=== PATIENT | male | born 1935 | race Caucasian/White ===

== ENCOUNTER 2017-12-02 13:30 | Observation (INO) | payer OTHER ==
[~2017-12-02] VITALS: Ht 165.1 cm; Wt 82.1 kg
[2017-12-02 14:02] LABS: BASOPHIL (%) 0.4 % (0-1); EOSINOPHIL (%) 5.1 % (0-5); EOSINOPHIL COUNT 0.6 K/uL (0-0.3); HEMATOCRIT 44.9 % (38.0-50.0); HEMOGLOBIN 14.9 G/DL (12.5-16.6); IMMATURE GRANULOCYTE (%) 0.3 % (0.0-0.7); LYMPHOCYTE (%) 56.4 % (15-42); LYMPHOCYTE COUNT 6.4 K/uL (1.0-2.8); MCH 29.9 PG (29.0-34.0); MCHC 33.2 G/DL (30.0-36.0); MCV 90.2 FL (86-99); MONOCYTE (%) 6.8 % (3-12); MONOCYTE COUNT 0.8 K/uL (0-0.8); NEUTROPHIL COUNT 3.5 K/uL (1.8-6.4); RBC DIS.WIDTH-CV 12.4 % (11.8-14.6); RBC DIS.WIDTH-SD 41.1 % (39-53); RED BLOOD COUNT 4.98 M/uL (4.00-5.50); WHITE BLOOD COUNT 11.3 K/uL (4.1-10.2)
[2017-12-02 14:10] LABS: INTER. NORMALIZED RATIO 1.2
[2017-12-02 14:11] LABS: AMYLASE 128 IU/L (1-118); CHLORIDE 110 mEq/L (99-109); POTASSIUM 4.8 mEq/L (3.7-5.4); SODIUM 142 mEq/L (136-147)
[2017-12-02 14:12] LABS: PTT 27.9 SEC (25-37)
[2017-12-02 14:13] LABS: GLUCOSE 66 mg/dL (70-99)
[2017-12-02 14:16] LABS: CREATININE 1.3 mg/dL (0.6-1.3); GFR ESTIMATE (CALCULATED) 56 mL/min/ (58.99-99999); SERUM ETHYL ALCOHOL < 10 mg/dL
[2017-12-02 14:17] LABS: UREA NITROGEN (BUN) 21 mg/dL (9-23)
[2017-12-02 14:19] LABS: LIPASE 59 U/L (1.0-51.0)
[2017-12-02 14:22] LABS: TROP-I INTERPRETATION NEGATIVE; TROPONIN-I < 0.01 ng/mL (0.0-0.30)
[2017-12-02 14:43] LABS: PLAT.SUFFICIENCY ADEQUATE; PLATELET COUNT 299 K/uL (156-360)
[2017-12-02 15:30] LABS: APPEARANCE SL.HAZY ((CLEAR)); BILIRUBIN NEGATIVE; BLOOD NEGATIVE; COLOR YELLOW ((YELLOW)); GLUCOSE (STRIP) 50; KETONES NEGATIVE; LEUKOCYTES NEGATIVE; NITRITE NEGATIVE; PROTEIN (STRIP) NEGATIVE; SPECIFIC GRAVITY 1.011 (1.000-1.030); UROBILINOGEN 0.2 MG/DL (0.2-1.0)
[2017-12-02 15:38] LABS: BACTERIA NONE SEEN /HPF; EPITHELIAL CELLS NONE SEEN /HPF; MUCUS NONE SEEN /LPF; RED BLOOD CELLS 0-5 /HPF (0-5); UCUL ADDED? NO; WHITE BLOOD CELLS 0-5 /HPF (0-5)
[2017-12-02 15:41] LABS: AMPHETAMINE NEGATIVE (500 ng/mL); BARBITURATES NEGATIVE (200 ng/mL); BENZODIAZEPINES NEGATIVE (150 ng/mL); BUPRENORPHINE NEGATIVE (10 ng/mL); COCAINE NEGATIVE (150 ng/mL); METHADONE NEGATIVE (200 ng/mL); METHAMPHETAMINE NEGATIVE (500 ng/mL); OPIATES (MORPHINE) NEGATIVE (100 ng/mL); OXYCODONE NEGATIVE (100 ng/mL); PHENCYCLIDINE NEGATIVE (25 ng/mL); PROPOXYPHENE NEGATIVE (300 ng/mL); THC CANNABINOIDS NEGATIVE (50 ng/mL); TRICYCLIC ANTIDEPRESSANTS NEGATIVE (300 ng/mL)
[2017-12-02] MEDS ORDERED: NORVASC5 MG PO (16:18)
[2017-12-02] MEDS ORDERED: LO-DOSE ASPIRIN81 M2 PO (16:18)
[2017-12-02] MEDS ORDERED: PLAVIX75 MG PO (16:18)
[2017-12-02] MEDS ORDERED: ARICEPT5 MG PO (16:18)
[2017-12-02] MEDS ORDERED: CELEXA20 MG PO (16:18)
[2017-12-02] MEDS ORDERED: ZETIA10 MG PO (16:19)
[2017-12-02] MEDS ORDERED: NEURONTIN300 MG PO (16:19)
[2017-12-02] MEDS ORDERED: FENOFIBRATE160 M1 PO (16:19)
[2017-12-02] MEDS ORDERED: ALTACE5 MG PO (16:20)
[2017-12-02] MEDS ORDERED: NITROSTAT0.4 MG SL (16:20)
[2017-12-02] MEDS ORDERED: GLUCOTROL5 MG PO (16:20)
[2017-12-02] MEDS ORDERED: VICTOZA0.6 MG/0.1 SC (16:21)
[2017-12-02] MEDS ORDERED: KENALOG,ARISTOC80 GM TP (16:21)
[2017-12-02] MEDS ORDERED: CIALIS5 MG PO (16:23)
[2017-12-02 17:14] LABS: HDL CHOLESTEROL 32 MG/DL (Desirable>=40); LDL CHOLESTEROL 110 mg/dL (Desirable<100); NON-HDL CHOLESTEROL 144 mg/dL (Desirable<160); TOTAL CHOLESTEROL 176 mg/dL (Desirable<200); TRIGLYCERIDES 170 MG/DL (Normal: <150)
[2017-12-02 19:26] VITALS: BP 135/60
[2017-12-02 20:07] LABS: TROP-I INTERPRETATION NEGATIVE; TROPONIN-I < 0.01 ng/mL (0.0-0.30)
[2017-12-03 00:32] VITALS: BP 166/74
[2017-12-03 03:02] LABS: HEMATOCRIT 40.9 % (38.0-50.0); HEMOGLOBIN 14.2 G/DL (12.5-16.6); MCH 30.5 PG (29.0-34.0); MCHC 34.7 G/DL (30.0-36.0); PLATELET COUNT 242 K/uL (156-360); RBC DIS.WIDTH-CV 12.1 % (11.8-14.6); RBC DIS.WIDTH-SD 39.3 % (39-53); RED BLOOD COUNT 4.65 M/uL (4.00-5.50); WHITE BLOOD COUNT 7.1 K/uL (4.1-10.2)
[2017-12-03 03:26] LABS: TROP-I INTERPRETATION NEGATIVE; TROPONIN-I < 0.01 ng/mL (0.0-0.30)
[2017-12-03 04:45] VITALS: BP 124/59
[2017-12-03] MEDS ORDERED: PRAVACHOL20 MG PO (08:03)
[2017-12-05 10:20] LABS: HEMOGLOBIN A1c (GLYCOHEMOGLOB) 4.9 % (Below 5.7)
== END 2017-12-03 09:22 | disposition home or self-care (01) ==
LOC: EME 13:30 → EDOF 15:35 → ENRESERV 15:45 → 5WEST 19:11
PROVIDERS: Emergency Medicine; Hospitalist
DX: G45.9 Transient cerebral ischemic attack, unspecified (principal); I65.23 Occlusion and stenosis of bilateral carotid arteries; I25.10 Atherosclerotic heart disease of native coronary artery without angina pectoris; Z95.1 Presence of aortocoronary bypass graft; Z86.73 Personal history of transient ischemic attack (TIA), and cerebral infarction without residual deficits; F03.90 Unspecified dementia, unspecified severity, without behavioral disturbance, psychotic disturbance, mood disturbance, and anxiety; I10 Essential (primary) hypertension; E78.5 Hyperlipidemia, unspecified; E11.9 Type 2 diabetes mellitus without complications; Z90.49 Acquired absence of other specified parts of digestive tract; Z82.49 Family history of ischemic heart disease and other diseases of the circulatory system; Z83.3 Family history of diabetes mellitus; Z87.891 Personal history of nicotine dependence; Z79.84 Long term (current) use of oral hypoglycemic drugs
CPT/HCPCS: 70450; 70551; 80047; 80048; 80061; 81003; 82150; 82948; 83036; 83605; 83690; 84484; 85025; 85027; 85610; 85730; 86850; 86900; 86901; 93005; 93880; 99281; 99285; G0378; G0480; J7030